=== PATIENT | male | born 2000 | race Caucasian/White ===

== ENCOUNTER 2021-12-31 08:27 | Day surgery (SDC) | payer BC ==
[2021-12-25 12:28] VITALS: BMI 25.0
[2021-12-31] MEDS ORDERED: MIDAZOLAM HCL 2 MG/2 ML SINGLE DOSE VIAL ONE ×3 (09:29→10:38)
[2021-12-31] MEDS ORDERED: ROPIVACAINE HCL/PF 100 MG/20 ML VIAL ONE (09:29)
[2021-12-31] MEDS ORDERED: BUPIVACAINE HCL/EPINEPHRINE/PF 30 ML VIAL IJ ONE (10:09)
[2021-12-31] MEDS ORDERED: DEXMEDETOMIDINE HCL 200 MCG/2 ML IVPB ONE (10:12)
[2021-12-31] MEDS ORDERED: PROPOFOL 20 ML ONE ×4 (10:29→11:12)
[2021-12-31] MEDS ORDERED: fentaNYL CITRATE 250 MCG/5 ML VIAL ONE (10:46)
[2021-12-31] MEDS ORDERED: BUPIVACAINE 0.25% /EPI 1:200,000 10 ML VIAL INF ONE (11:40)
[2021-12-31] MEDS ORDERED: ONDANSETRON 4 MG/2 ML VIAL IVPUSH PRN (12:08)
[2021-12-31] MEDS ORDERED: oxyCODONE HCL 5 MG TABLET PO PRN (12:08)
[2021-12-31] MEDS ORDERED: LACTATED RINGERS SOLUTION 1,000 ML IV SCH (12:15)
[2021-12-31 16:53] VITALS: TEMP 97.8
[2021-12-31 17:10] VITALS: BP 135/82; PULSE 72
== END 2021-12-31 14:55 | disposition home or self-care (01) ==
LOC: FASU 08:27
PROVIDERS: ATTEND Orthopaedic Surgery
PROC: 0RQK4ZZ Repair Left Shoulder Joint, Percutaneous Endoscopic Approach (ICD-10-PCS; principal; 2021-12-31 10:57)
DX: M25.312 Other instability, left shoulder (principal)
CPT/HCPCS: 94760